=== PATIENT | female | born 1990 | race Caucasian/White ===

== ENCOUNTER 2017-06-28 17:41 | Emergency (ER) | payer BC, SELFPAY ==
[2017-06-28 17:59] VITALS: BP 139/95; PULSE 113; RESP 20; TEMP 36.8; O2SAT 99
[2017-06-28 18:01] VITALS: BMI 28.3
--- NOTE | 2017-06-28 18:03 | US_ITS ---
US OB transvaginal Ordering Physician: Jose Alberto Ventura MD Patient Age: 26 years: Female HISTORY: ITS.REASON: APPROX 8 WEEKS PREG W/PAIN AND SM AMOUNT OF BLEEDI home chest reported positive for . Spotting. Pressure pelvis. TECHNIQUE: Transvaginal pelvic ultrasound COMPARISON : 05/24/2017 FINDINGS No intrauterine gestation is evident. No gestational sac. There is a generous thickened endometrium which may reflect decidual reaction. It measures nearly 1 cm maximum AP thickness. Towards fundus.. The lack of intrauterine gestational sac with positive test is concerning for potential ectopic . Requires correlation with quantitative beta-hCG to better determine the status of this . Left ovary. There is a 1.7 x 1.3 cm cystic area posterior to the left ovary. No significant increased flow here, no ring of fire. The remainder the left ovary anterior to this is unremarkable and normal size measuring 2.2 cm x 2.6 cm x 1.8 cm. Right ovary 2.6 x 1.1 x 0.9 cm.. Elongated appearance with small follicles about its margin. The No free fluid at cul-de-sac IMPRESSION No intrauterine gestation or gestational sac evident. The would appear to be thickened endometrium measuring up to 1 cm may reflect decidual reaction. Empty gestational sac with positive test is significantly concerning for early ectopic . Requires correlation with serum beta hCG. In addition there is a 1.7 x 1.3 cm moderately thick walled cystic area posterior to the left ovary. No increased flow or internal structures here to further raise concern regarding ectopic. BROADCAST TRAFFIC COORDINATOR consult warranted
[2017-06-28 18:55] VITALS: PULSE 93; RESP 18; O2SAT 95; BMI 28.1
[2017-06-28 19:43] LABS: HCG,Quantitative 46 mIU/mL
[2017-06-28 19:59] VITALS: BP 122/81; PULSE 86; RESP 16; TEMP 37.1; O2SAT 97
--- NOTE | 2017-06-28 20:05 | PC.NURSE ---
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
--- NOTE | 2017-06-28 20:22 | HMH.EDUROGF ---
ED Disposition Clinical Impression: Qualifiers: Weeks of gestation: less than 8 weeks Qualified Code(s): Z3A.01 - Less than 8 weeks gestation of Disposition: Home, Self-Care Condition on Discharge: Good Instructions: Threatened - Critical Care Critical Care Time: No Attestation: On 06/28/17, the high probability of a clinically significant, sudden or life threatening deterioration of the following system(s) required my full and direct attention, intervention and personal management. The time I documented below is in addition to time spent performing reported procedures but includes the following listed in this critical care notation. Medical Decision Making Vital Signs: 06/28/17 17:59 06/28/17 18:55 06/28/17 19:59 Temperature 98.2 F 98.7 F Temperature Source Oral Oral Pulse Rate [Left Radial] 113 H 93 H 86 Respiratory Rate 20 18 16 Blood Pressure [Left Arm] 139/95 122/81 Blood Pressure Mean [Left Arm] 109 94 Blood Pressure Source [Left Arm] Automatic Cuff Automatic Cuff Blood Pressure Position [Left Arm] Sitting Sitting 02 Sat by Pulse Oximetry 99 95 97 Oxygen Delivery Method Room Air Room Air Room Air - Lab Data Lab results reviewed: Yes: I reviewed the patient's lab results. hcg- 46 Orders (Tests/Meds): ORDERS Category Date Time Status US OB transvaginal Stat Ultrasound 06/28/17 18:03 Taken - [place] Inquiry Pt receiving controlled substance: No Medical Decision Making Narrative: cystic structure left adnexa with no sac, discussed with Dr. Restrepo will give paper for OP hcg. Female Urogenital HPI - General Chief complaint: Vaginal Bleeding Stated complaint: Preg, Pelvic Pain, Dizzy Bleeding Mode of Arrival: Ambulatory Limitations: No Limitations Description of Symptoms (Recalled from ER Triage Doc. 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 PT SPOKE WITH AND SENT TO ER FOR SPOTTING, PELVIC PRESSURE, AND LIGHT HEADEDNESS. - History of Present Illness MD Complaint: vaginal bleeding (spotting, she is sexually active) : unsure - Related Data Allergies Allergy/AdvReac Type Severity Reaction Status Date / Time codeine [CODEINE] Allergy Severe S-SWELLS-OR Unverified 06/15/17 14:12 AL/THROAT lamotrigine [From LAMICTAL] Allergy Unknown Unverified 06/15/17 14:12 morphine [MORPHINE] Allergy Unknown Unverified 06/15/17 14:12 Penicillins [PENICILLINS] Allergy Unknown S-DIFF. Unverified 06/15/17 14:12 BREATHING [facility] History I have reviewed the patient's past medical history: Yes Medical History: Denies:: Cancer, Diabetes Mellitus Type 1, Diabetes Mellitus Type 2, MRSA Amputation: No Fractures: No - *Social History Smoking Status: Never smoker Alcohol Intake: never - Psychiatric History Expresses thoughts of harming self/others: None Suicide Plan Description: No Plan ROS Obtained: Yes All systems reviewed & no additional complaints except - Genitourinary Reports other - Allergic/Immunologic Comments: she has had spotting and positive test, very upset. I discussed with Dr Restrepo- order OP cervical collar Physical Exam - General General appearance: alert, in no apparent distress - Head Head exam: atraumatic, normocephalic, normal inspection - Eye Eye exam: Present: normal appearance, PERRL, EOMI - ENT ENT exam: Present: normal exam, normal oropharynx, mucous membranes moist, TM's normal bilaterally, normal external ear exam - Neck Neck exam: Present: normal inspection, full ROM, trachea midline - Chest Chest inspection: Present: normal inspection, symmetric chest wall rise. Absent: tenderness - Respiratory Respiratory exam: Present: normal lung sounds bilaterally. Absent: respiratory distress - Cardiovascular Cardiovascular exam: Present: regular rate, normal rhythm. Absent: JVD - Abdominal Exam Abdominal exam: Present: soft, no
--- NOTE | 2017-06-28 20:25 | ED_ITS ---
ED Disposition Clinical Impression: Qualifiers: Weeks of gestation: less than 8 weeks Qualified Code(s): Z3A.01 - Less than 8 weeks gestation of Disposition: Home, Self-Care Condition on Discharge: Good Instructions: Threatened - Critical Care Critical Care Time: No Attestation: On 06/28/17, the high probability of a clinically significant, sudden or life threatening deterioration of the following system(s) required my full and direct attention, intervention and personal management. The time I documented below is in addition to time spent performing reported procedures but includes the following listed in this critical care notation. Medical Decision Making Vital Signs: 06/28/17 17:59 06/28/17 18:55 06/28/17 19:59 Temperature 98.2 F 98.7 F Temperature Source Oral Oral Pulse Rate [Left Radial] 113 H 93 H 86 Respiratory Rate 20 18 16 Blood Pressure [Left Arm] 139/95 122/81 Blood Pressure Mean [Left Arm] 109 94 Blood Pressure Source [Left Arm] Automatic Cuff Automatic Cuff Blood Pressure Position [Left Arm] Sitting Sitting 02 Sat by Pulse Oximetry 99 95 97 Oxygen Delivery Method Room Air Room Air Room Air - Lab Data Lab results reviewed: Yes: I reviewed the patient's lab results. hcg- 46 Orders (Tests/Meds): ORDERS Category Date Time Status US OB transvaginal Stat Ultrasound 06/28/17 18:03 Taken - [place] Inquiry Pt receiving controlled substance: No Medical Decision Making Narrative: cystic structure left adnexa with no sac, discussed with Dr. Restrepo will give paper for OP hcg. Female Urogenital HPI - General Chief complaint: Vaginal Bleeding Stated complaint: Preg, Pelvic Pain, Dizzy Bleeding Mode of Arrival: Ambulatory Limitations: No Limitations Description of Symptoms (Recalled from ER Triage Doc. 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 PT SPOKE WITH AND SENT TO ER FOR SPOTTING, PELVIC PRESSURE, AND LIGHT HEADEDNESS. - History of Present Illness MD Complaint: vaginal bleeding (spotting, she is sexually active) : unsure - Related Data Allergies Allergy/AdvReac Type Severity Reaction Status Date / Time codeine [CODEINE] Allergy Severe S-SWELLS-OR Unverified 06/15/17 14:12 AL/THROAT lamotrigine [From LAMICTAL] Allergy Unknown Unverified 06/15/17 14:12 morphine [MORPHINE] Allergy Unknown Unverified 06/15/17 14:12 Penicillins [PENICILLINS] Allergy Unknown S-DIFF. Unverified 06/15/17 14:12 BREATHING [facility] History I have reviewed the patient's past medical history: Yes Medical History: Denies:: Cancer, Diabetes Mellitus Type 1, Diabetes Mellitus Type 2, MRSA Amputation: No Fractures: No - *Social History Smoking Status: Never smoker Alcohol Intake: never - Psychiatric History Expresses thoughts of harming self/others: None Suicide Plan Description: No Plan ROS Obtained: Yes All systems reviewed & no additional complaints except - Genitourinary Reports other - Allergic/Immunologic Comments: she has had spotting and positive test, very upset. I discussed with Dr Restrepo- order OP cervical collar Physical Exam - General General appearance: alert, in no apparent distress - Head Head exam: atra
[2017-06-28 20:47] VITALS: BP 122/79; PULSE 80; RESP 15; TEMP 36.6; O2SAT 96
== END 2017-06-28 20:49 | disposition home or self-care (01) ==
PROVIDERS: Emergency Provider Family Medicine; Family Provider Internal Medicine Adolescent Medicine
DX: O20.8 Other hemorrhage in early pregnancy (principal); Z3A.08 8 weeks gestation of pregnancy; Z88.6 Allergy status to analgesic agent
CPT/HCPCS: 76830; 84702; 99283

== ENCOUNTER 2017-06-30 15:21 | Emergency (ER) | payer BC, MEDICAID, SELFPAY ==
[2017-06-30 15:22] VITALS: BP 136/67; PULSE 112; RESP 24; TEMP 38.1; O2SAT 98; BMI 28.3
--- NOTE | 2017-06-30 16:07 | HMH.EDGENADL ---
ED Disposition Clinical Impression: Influenza A Qualifiers: Weeks of gestation: less than 8 weeks Qualified Code(s): Z3A.01 - Less than 8 weeks gestation of Disposition: Home, Self-Care Condition on Discharge: Good Instructions: DI for Influenza -- Adult Additional Instructions: Off work for 1 week until 07/07/17. Additional instructions for UPPER RESPIRATORY INFECTION: Follow-up with your physician if not improved by Wednesday. return immediately if you have an uncontrollable fever greater than 104 degrees, difficulty breathing or shortness of breath, persistent vomiting, or inability to swallow. Prescriptions: Promethazine HCl [Phenergan 25mg tab] 25 mg PO Q6HP PRN #10 tab PRN Reason: Nausea And Vomiting Promethazine HCl [Phenergan 25mg tab] 25 mg PO Q6HP PRN #10 tablet PRN Reason: Nausea And Vomiting Oseltamivir Phosphate [Tamiflu 75mg Capsule] 75 mg PO BID #10 capsule Oseltamivir Phosphate [Tamiflu 75mg Capsule] 75 mg PO BID #10 cap Referrals: Guille Morrell MD [Primary Care Provider] - Forms: Work/School Release - Critical Care Critical Care Time: No Attestation: On 06/30/17, the high probability of a clinically significant, sudden or life threatening deterioration of the following system(s) required my full and direct attention, intervention and personal management. The time I documented below is in addition to time spent performing reported procedures but includes the following listed in this critical care notation. Medical Decision Making Vital Signs: 06/30/17 15:22 Temperature 100.5 F H Temperature Source Oral Pulse Rate [Left Brachial] 112 H Respiratory Rate 24 Blood Pressure [Left Arm] 136/67 Blood Pressure Mean [Left Arm] 90 Blood Pressure Source [Left Arm] Automatic Cuff Blood Pressure Position [Left Arm] Sitting 02 Sat by Pulse Oximetry 98 Oxygen Delivery Method Room Air - Lab Data Lab Results 06/30/17 15:45: Influenza Type A Ag Positive A, Influenza Type B Ag Negative 06/30/17 16:28: WBC 9.4, RBC 4.37, Hgb 12.1 L, Hct 38.5, MCV 88.2, MCH 27.7, MCHC 31.4 L, RDW 17.6 H, Plt Count 246, MPV 8.5, Neut % (Auto) 86.3 H, Lymph % (Auto) 6.4 L, [place] % (Auto) 5.8, Eos % (Auto) 1.1, Baso % (Auto) 0.2, Neut # (Auto) 8.1 H, Lymph # (Auto) 0.6 L, [place] # (Auto) 0.6, Eos # (Auto) 0.1, Baso # (Auto) 0.0 06/30/17 16:35: Sodium 135 L, Potassium 3.9, Chloride 102, Carbon Dioxide 25, Anion Gap 11.9, BUN 13, Creatinine 0.87, Estimated Creat Clear 115, Estimated GFR > 60, Est GFR ( Amer) > 60, Glucose 113 H, HCG, Quant 90 H Result diagrams: 06/30/17 16:28 06/30/17 16:35 Orders (Tests/Meds): ED MEDICATIONS Generic Name Dose Route Start Last Admin Trade Name Freq PRN Reason Stop Dose Admin Sodium Chloride 1,000 mls @ 999 mls/hr 06/30/17 16:45 06/30/17 16:47 Sod Chloride 0.9% 1000ml Bag IV 06/30/17 17:45 999 mls/hr .Q1H1M ANTON Administration Sodium Chloride 10 ml 06/30/17 15:37 Saline Flush 10ml Syringe IV 07/30/17 15:36 NEEDED PRN Maintain IV Site Discontinued Medications Generic Name Dose Route Start Last Admin Trade Name Freq PRN Reason Stop Dose Admin Acetaminophen 500 mg 06/30/17 17:38 Tylenol 500mg Tablet PO 06/30/17 17:39 ONCE ONE Promethazine HCl 12.5 mg 06/30/17 17:35 Phenergan 25mg/Ml 1ml Vial IV 06/30/17 17:36 ONCE ONE Sodium Chloride 25 ml 06/30/17 17:35 Sod Chloride 0.9% 25ml Bag IV 06/30/17 17:36 ONCE ONE ORDERS Category Date Time Status Complete Blood Count Auto Diff Stat Lab 06/30/17 16:28 Results - ECG Data Tracing #1 EKG interpreted by Dillon Chakraborty MD: Rhythm: sinus tachycardia Rate: 121 [place]: normal Ectopy: none Conduction: normal ST Segment Changes: none T Wave Changes: none Q Waves: none No evidence of acute ischemia or injury Poor R-wave progression Baseline artifact present, but I consider the EKG adequate for accurat
[2017-06-30 16:49] LABS: Basophils % 0.2 % (0.1-2.0); Eosinophils # 0.1 K/mm3 (0.0-0.4); Eosinophils % 1.1 % (0.1-12.0); Hematocrit 38.5 % (37.0-47.0); Hemoglobin 12.1 g/dL (12.2-16.2); Lymphocytes # 0.6 K/mm3 (0.7-4.5); Lymphocytes % 6.4 K/mm3 (10-50); Mean Corpuscular HGB Conc 31.4 g/dL (31.8-35.4); Mean Corpuscular Hemoglobin 27.7 pg (27.0-31.2); Mean Corpuscular Volume 88.2 fl (81-99); Mean Platelet Volume 8.5 fl (7.4-10.4); Monocytes # 0.6 K/mm3 (0.1-1.0); Monocytes % 5.8 % (1.7-9.3); Neutrophils # 8.1 K/mm3 (1.8-7.8); Neutrophils % 86.3 % (37.0-80.0); Platelet Count 246 K/mm3 (142-424); Red Blood Count 4.37 M/mm3 (4.20-5.40); Red Cell Distribution Width 17.6 % (11.5-17.5); White Blood Count 9.4 K/mm3 (4.8-10.8)
[2017-06-30 16:53] LABS: MANUAL DIFFERENTIAL MANUAL DIFFERENTIAL (MANUAL DIFF)
[2017-06-30 17:23] LABS: Anion Gap 11.9 mEq/L (5-15); Blood Urea Nitrogen 13 mg/dL (7-18); Carbon Dioxide 25 mmol/L (21.0-32.0); Chloride 102 mmol/L (98-107); Creatinine Clearance Estimated 115 mg/ml (0-300); Creatinine,Serum 0.87 mg/dL (0.55-1.02); Estimated Glomerular Filt Rate > 60 ml/min (>60); GFR (African American) > 60 ML/MIN (>60); Glucose 113 mg/dL (74-106); Potassium 3.9 mmoL/L (3.5-5.1); Sodium 135 mmol/L (136-145)
[2017-06-30 17:24] LABS: HCG,Quantitative 90 mIU/mL
[2017-06-30 17:49] LABS: Lymphocytes % 5 % (10-50); Monocytes % 7 % (2-9); Neutrophils % 86 % (42-76); Platelet Estimate Normal; Total Cells Counted 100
[2017-06-30 17:50] LABS: RBC Morphology Normal
[2017-06-30 18:44] VITALS: BP 128/76; PULSE 78; RESP 20; TEMP 37.3; O2SAT 97
== END 2017-06-30 18:50 | disposition home or self-care (01) ==
PROVIDERS: Emergency Provider Emergency Medicine; Family Provider Internal Medicine Adolescent Medicine; PCP Internal Medicine Adolescent Medicine
DX: J10.1 Influenza due to other identified influenza virus with other respiratory manifestations (principal); Z3A.01 Less than 8 weeks gestation of pregnancy; Z88.0 Allergy status to penicillin; Z88.6 Allergy status to analgesic agent
CPT/HCPCS: 80048; 84702; 85007; 85025; 87275; 87276; 93005; 96375; 99282

== ENCOUNTER → 2017-07-05 14:22 | Outpatient (CLI) | payer BC, SELFPAY ==
[2017-07-05 15:51] LABS: HCG,Quantitative 551 mIU/mL
== END ==
PROVIDERS: PCP Family Medicine; Visit Provider Family Medicine
DX: Z34.90 Encounter for supervision of normal pregnancy, unspecified, unspecified trimester (principal)
CPT/HCPCS: 36415; 84702

== ENCOUNTER → 2017-07-08 15:56 | Outpatient (CLI) | payer BC, MEDICAID, SELFPAY ==
--- NOTE | 2017-07-08 16:08 | US_ITS ---
US OB transvaginal: INDICATION: Evaluate gestational age ITS.REASON: FOR DATES ORDERING PHYSICIAN: Kush Singh MD PATIENT AGE: 26 years TECHNIQUE: ultrasound endovaginal US OB transvaginal FINDINGS: The images submitted are fairly limited. 2 small cystic areas are present in the fundus of the uterus measuring approximately 4 x 3 and 4 x 2 mm. Is difficult to determine the exact location of these on the images submitted. No poles are apparent. Endometrial stripe is not well demonstrated. These areas may be out of the endometrium. There is a left ovarian cyst at 2 cm. No cul-de-sac. IMPRESSION: Limited exam. 2 small cystic areas in the region of the fundus of the uterus of indeterminate etiology. No poles or yolk sacs apparent. Short-term follow-up recommended as well as correlation with beta hCG. A live intrauterine gestation is not identified at this
== END ==
PROVIDERS: Family Provider Internal Medicine Adolescent Medicine; PCP Family Medicine; Visit Provider Nurse Practitioner Obstetrics & Gynecology
DX: O26.841 Uterine size-date discrepancy, first trimester (principal)
CPT/HCPCS: 76830

== ENCOUNTER 2017-07-15 15:16 | Observation (INO) | payer BC, MEDICAID, SELFPAY ==
[2017-07-15 15:18] VITALS: BP 133/78; PULSE 119; RESP 20; TEMP 37.3; O2SAT 98; BMI 29.2
[2017-07-15 16:01] LABS: Microscopic, Urine URINE MICROSCOPIC (MICROSCOPIC)
[2017-07-15 16:10] LABS: Appearance,Urine CLOUDY (Clear); Bilirubin,Urine Negative (Negative); Blood, Urine LARGE (Negative); Color,Urine YELLOW (Yellow); Glucose,Urine (UA) Negative (Negative); Ketones,Urine 40 (Negative); Leukocyte Esterase,Urine Negative (Negative); Nitrate,Urine Negative (Negative); Protein,Urine TRACE (Negative); Specific Gravity, Urine 1.025 (1.005-1.030); Urobilinogen,Urine 0.2 EU/dl (0.2)
[2017-07-15 16:12] LABS: Basophils % 0.3 % (0.1-2.0); Eosinophils # 0.1 K/mm3 (0.0-0.4); Eosinophils % 0.6 % (0.1-12.0); Hematocrit 39.5 % (37.0-47.0); Hemoglobin 12.9 g/dL (12.2-16.2); Lymphocytes % 23.1 K/mm3 (10-50); Mean Corpuscular HGB Conc 32.7 g/dL (31.8-35.4); Mean Corpuscular Hemoglobin 28.6 pg (27.0-31.2); Mean Corpuscular Volume 87.7 fl (81-99); Mean Platelet Volume 7.4 fl (7.4-10.4); Monocytes # 0.4 K/mm3 (0.1-1.0); Platelet Count 368 K/mm3 (142-424); Red Cell Distribution Width 17.4 % (11.5-17.5); White Blood Count 8.5 K/mm3 (4.8-10.8)
[2017-07-15 16:20] LABS: Alanine Aminotransferase 24 U/L (12-78); Albumin Level 4.4 gm/dL (3.4-5.0); Albumin/Globulin Ratio 1.1 (1.1-1.8); Alkaline Phosphatase 83 U/L (46-116); Amylase 98 U/L (25-125); Anion Gap 15.2 mEq/L (5-15); Aspartate Amino Transferase 17 U/L (15-37); Bilirubin,Total 0.3 mg/dL (0.2-1.0); Blood Urea Nitrogen 9 mg/dL (7-18); Calcium 9.1 mg/dL (8.5-10.1); Carbon Dioxide 22 mmol/L (21.0-32.0); Chloride 100 mmol/L (98-107); Creatinine Clearance Estimated 124 mL/min (0-300); Creatinine,Serum 0.83 mg/dL (0.55-1.02); Estimated Glomerular Filt Rate 82 ml/min (>60); GFR (African American) 100 ML/MIN (>60); Globulin 3.9 gm/dl (1.3-3.2); Glucose 98 mg/dL (74-106); Lipase 119 u/L (73-393); Potassium 3.2 mmoL/L (3.5-5.1); Sodium 134 mmol/L (136-145); Total Protein,Serum 8.3 gm/dL (6.4-8.2)
--- NOTE | 2017-07-15 16:30 | HMH.EDGENADL ---
ED Disposition Clinical Impression: Kidney stone Qualifiers: Weeks of gestation: 8 weeks Qualified Code(s): Z3A.08 - 8 weeks gestation of Hematuria Qualifiers: Hematuria type: unspecified type Qualified Code(s): R31.9 - Hematuria, unspecified Disposition: Admitted As Inpatient Condition on Discharge: Good Time of Disposition: 16:45 - Critical Care Critical Care Time: No Attestation: On 07/15/17, the high probability of a clinically significant, sudden or life threatening deterioration of the following system(s) required my full and direct attention, intervention and personal management. The time I documented below is in addition to time spent performing reported procedures but includes the following listed in this critical care notation. Medical Decision Making - Medical Records Medical records reviewed: Yes: I reviewed the patient's medical records. Vital Signs: 07/15/17 15:18 07/15/17 18:37 Temperature 99.2 F 98.6 F Temperature Source Oral Oral Pulse Rate 87 Pulse Rate [Right Radial] 119 H Respiratory Rate 20 14 Blood Pressure 114/74 Blood Pressure [Right Arm] 133/78 Blood Pressure Mean [Right Arm] 96 Blood Pressure Source Automatic Cuff Blood Pressure Source [Right Arm] Automatic Cuff Blood Pressure Position Sitting Blood Pressure Position [Right Arm] Supine 02 Sat by Pulse Oximetry 98 Oxygen Delivery Method Room Air Room Air - Lab Data Lab results reviewed: Yes: I reviewed the patient's lab results. Lab Results 07/15/17 15:55: Urine Color Yellow, Urine Appearance Cloudy, Urine pH 6.0, Ur Specific [place] 1.025, Urine Protein Trace, Urine Glucose (UA) Negative, Urine Ketones 40, Urine Blood Large, Urine Nitrate Negative, Urine Bilirubin Negative, Urine Urobilinogen 0.2, Ur Leukocyte Esterase Negative, Urine RBC Tntc, Urine WBC Occasional, Ur Squamous Epith Cells Occasional, Urine Bacteria Trace 07/15/17 15:55: WBC 8.5, RBC 4.50, Hgb 12.9, Hct 39.5, MCV 87.7, MCH 28.6, MCHC 32.7, RDW 17.4, Plt Count 368, MPV 7.4, Neut % (Auto) 71.0, Lymph % (Auto) 23.1, [place] % (Auto) 5.0, Eos % (Auto) 0.6, Baso % (Auto) 0.3, Neut # (Auto) 6.0, Lymph # (Auto) 2.0, [place] # (Auto) 0.4, Eos # (Auto) 0.1, Baso # (Auto) 0.0 07/15/17 15:55: Sodium 134 L, Potassium 3.2 L, Chloride 100, Carbon Dioxide 22, Anion Gap 15.2 H, BUN 9, Creatinine 0.83, Estimated Creat Clear 124, Estimated GFR 82, Est GFR ( Amer) 100, Glucose 98, Calcium 9.1, Total Bilirubin 0.3, AST 17, ALT 24, Alkaline Phosphatase 83, Total Protein 8.3 H, Albumin 4.4, Globulin 3.9 H, Albumin/Globulin Ratio 1.1, Amylase 98, Lipase 119 Result diagrams: 07/15/17 15:55 07/15/17 15:55 Orders (Tests/Meds): ED MEDICATIONS Discontinued Medications Generic Name Dose Route Start Last Admin Trade Name Freq PRN Reason Stop Dose Admin Citalopram Hydrobromide 40 mg 07/16/17 12:00 07/17/17 09:27 Celexa 40mg Tablet PO 08/15/17 11:59 40 mg DAILY ANTON Administration Clonazepam 1 mg 07/16/17 13:00 07/17/17 09:27 Klonopin 1mg Tablet PO 08/15/17 12:59 1 mg TID ANTON Administration Diphenhydramine HCl 25 mg 07/15/17 19:37 07/16/17 12:29 Benadryl 25mg Capsule PO 08/14/17 19:36 25 mg Q8HP PRN Administration Itching Doxylamine Succinate/Pyridoxine 1 tab 07/16/17 09:00 07/17/17 09:27 Diclegis 10mg-10mg Tablet PO 08/15/17 08:59 1 tab BID ANTON Administration Hydromorphone HCl 1 mg 07/15/17 15:33 07/15/17 16:20 Dilaudid 2mg/Ml Syringe IV 07/15/17 15:34 1 mg ONCE ONE Administration Hydromorphone HCl 1 mg 07/15/17 17:23 07/15/17 17:31 Dilaudid 2mg/Ml Syringe IV 07/15/17 17:24 1 mg ONCE ONE Administration Hydromorphone HCl 0.5 mg 07/15/17 17:56 Dilaudid 2mg/Ml Syringe IV 08/14/17 17:59 Q4H PRN Moderate Pain Hydromorphone HCl 2 mg 07/15/17 18:31 Dilaudid 2mg Tablet PO 08/14/17 18:30 Q4HP PRN Moderate to Severe Pain Hydromorphon
--- NOTE | 2017-07-15 16:31 | US_ITS ---
US retroperitoneal comp HISTORY: Left flank pain ITS.REASON: right kidney stone ORDERING PHYSICIAN: Afshin Flores MD PATIENT AGE: 26 years COMPARISON: None FINDINGS: RIGHT KIDNEY:Unremarkable. Normal size and echogenicity. No hydronephrosis LEFT KIDNEY:Unremarkable. No hydronephrosis. Normal size and echogenicity. OTHER FINDINGS: No other pertinent findings IMPRESSION: Normal renal ultrasound
[2017-07-15 16:54] LABS: Bacteria,Urine Trace /lpf; RBC,Urine TNTC #/hpf (0-3); Squamous Epithelial Cell,Urine Occasional #/hpf (0-5); WBC,Urine Occasional #/hpf (0-3)
[2017-07-15 18:37] VITALS: BP 114/74; PULSE 87; RESP 14; TEMP 37; O2SAT 98
[2017-07-15 18:49] VITALS: BP 155/81; PULSE 111; RESP 20; TEMP 36.4; O2SAT 100; BMI 29.2
--- NOTE | 2017-07-16 00:18 | PC.NURSE ---
Assumed care of pt at this time. Report received from ADAM Nguyen
--- NOTE | 2017-07-16 07:35 | PC.NURSE ---
REPORT TO ALLENRN
--- NOTE | 2017-07-16 08:27 | P.PN_ITS ---
Internal Medicine - PN: Subj *Date: 07/16/17 *Time: 08:22 Interval history: She continues to complain of nausea and vomiting. She was throwing up on a towel on the floor leaning over her bed when I arrived in the room. She is very upset this morning. She apparently had the steel pan form placing supervisor involved with her care because she said the night nurse was not treating her well. This is the third time she has been in our hospital with pain and she has also had supervisors involved with her care each time due to her perception that the nurses were treating her well. She has been quite terse and hateful with her nurses and she says that they are all treating her badly. Her ultrasound shows a viable intrauterine gestation. She had an ultrasound of her kidneys that was normal with no evidence of hydronephrosis or blockage. She has blood in her urine. She has a history of kidney stones. She has been receiving Phenergan for her nausea and hydromorphone IV for her kidney pain. She says the pain started yesterday morning around 10:00. Exam Vital signs and Labs for Last 24 Hours: Temp Pulse Resp BP Pulse Ox 97.6 F 111 H 20 155/81 100 07/15/17 18:49 07/15/17 18:49 07/15/17 18:49 07/15/17 18:49 07/15/17 18:49 I & O for Last 24 hours: Intake & Output 07/13/17 07/14/17 07/15/17 07/16/17 11:59 11:59 11:59 11:59 Output Total 300 / 300 Balance -300 / -300 Weight 170 lb - Constitutional mild distress Assessment and Plan - Assessment and plan all Dx Assessment and Plan for all problems:: At this point in time she is upset because I told her that over the last 3 visits she has upset the nurses and has had involvement of supervisors each time she has been in hospital. I told her that maybe her perception was wrong about how the nurses were treating her. I told her that she could not treat the nurses badly either. She says that she would like to go back to [facility] at . We will see how she does for the rest of the day today. If she is feeling better later we will send her home. We will start Diclegis. Told her that I will send her home with pain medicine and Phenergan.
--- NOTE | 2017-07-17 10:44 | HMH.DCSUM ---
General - General Admission date: 07/15/17 Discharge date: 07/17/17 HPI HPI: She is a 26-year-old 2 para 1 who was 8 weeks gestational age. She has had a long history of both kidney stones and psychiatric problems. Has had a previous delivery in [place]. She came in to the emergency department with severe intractable renal colic on the left side. She said it started about 10:00 on the morning of July 15, 2017. She has had previous episodes of this as well. As a result of that she was admitted for pain control. She also complained of nausea and vomiting and she received medication for this as well. Objective Vital signs: Temp Pulse Resp BP Pulse Ox 97.6 F 111 H 20 155/81 100 07/15/17 18:49 07/15/17 18:49 07/15/17 18:49 07/15/17 18:49 07/15/17 18:49 no acute distress Hospital Course Hospital Course: While hospitalized she received IV Phenergan as well as IV Dilaudid for pain. She had an ultrasound that was essentially normal. There was no evidence of hydronephrosis or stones. She says that she passed a small stone and this was sent to pathology. It was approximately a millimeter in size and there was a small brown flake as well. Her urinalysis did show hematuria. At this point in time we could not find any physical reason for her pain except for the hematuria. While hospitalized she was quite anxious and upset at the nursing staff. She said that 1 of our nurses was not addressing her needs appropriately or quickly enough. As a result of that she fired the nurse in the middle of the night and had the nurse supervisor plastics involved. This is the third time she has been admitted to our hospital and each time she has fired nurses from her care and had management staff involved. Meds Home Medications Medication Instructions Recorded Confirmed Type Escitalopram Oxalate 20 mg PO DAILY 07/16/17 07/16/17 History Gabapentin [Neurontin 600mg 300 mg PO 10,14,18 07/16/17 07/16/17 History tablet] Gabapentin [Neurontin 600mg 600 mg PO HS 07/16/17 07/16/17 History tablet] Zolpidem Tartrate [Ambien 10mg 10 mg PO HS 07/16/17 07/16/17 History tablet] buPROPion HCl [Bupropion Xl] 300 mg PO DAILY 07/16/17 07/16/17 History clonazePAM [Klonopin 1mg tablet] 1 mg PO TID 07/16/17 07/16/17 History Allergies Allergy/AdvReac Type Severity Reaction Status Date / Time codeine [CODEINE] Allergy Severe S-SWELLS-OR Verified 06/30/17 16:44 AL/THROAT lamotrigine [From LAMICTAL] Allergy Unknown Verified 06/30/17 16:44 morphine [MORPHINE] Allergy Unknown Verified 06/30/17 16:44 Penicillins [PENICILLINS] Allergy Unknown S-DIFF. Verified 06/30/17 16:44 BREATHING Discharge Plan - Patient Discharge Instructions ACTIVITY: Continue current activity (She is discharged home to follow-up with a physician in [place]. She will follow-up with her urologist. She was given a prescription for Phenergan and Percocet.) DIET: continue same diet - Follow up Plan Disposition: Home, Self-Group Home Medications: Home Medications Medication Instructions Recorded Confirmed Type Escitalopram Oxalate 20 mg PO DAILY 07/16/17 07/16/17 History Gabapentin [Neurontin 600mg 300 mg PO 10,14,18 07/16/17 07/16/17 History tablet] Gabapentin [Neurontin 600mg 600 mg PO HS 07/16/17 07/16/17 History tablet] Zolpidem Tartrate [Ambien 10mg 10 mg PO HS 07/16/17 07/16/17 History tablet] buPROPion HCl [Bupropion Xl] 300 mg PO DAILY 07/16/17 07/16/17 History clonazePAM [Klonopin 1mg tablet] 1 mg PO TID 07/16/17 07/16/17 History Prescriptions/Medication Reconciliation: Continue Escitalopram Oxalate 20 mg PO DAILY Promethazine HCl [Phenergan 12.5mg tablet] 6.25 mg PO Q6H PRN 14 Days #14 tab PRN Reason: nausea and vomiting Discontinued buPROPion HCl [Bupropion Xl] 300 mg PO DAILY Gabapentin [Neurontin 600mg tablet] 600 mg PO HS Zolpidem Tartrate [Ambi
--- NOTE | 2017-07-17 10:50 | P.DS_ITS ---
General - General Admission date: 07/15/17 Discharge date: 07/17/17 HPI HPI: She is a 26-year-old 2 para 1 who was 8 weeks gestational age. She has had a long history of both kidney stones and psychiatric problems. Has had a previous delivery in [place]. She came in to the emergency department with severe intractable renal colic on the left side. She said it started about 10:00 on the morning of July 15, 2017. She has had previous episodes of this as well. As a result of that she was admitted for pain control. She also complained of nausea and vomiting and she received medication for this as well. Objective Vital signs: Temp Pulse Resp BP Pulse Ox 97.6 F 111 H 20 155/81 100 07/15/17 18:49 07/15/17 18:49 07/15/17 18:49 07/15/17 18:49 07/15/17 18:49 no acute distress Hospital Course Hospital Course: While hospitalized she received IV Phenergan as well as IV Dilaudid for pain. She had an ultrasound that was essentially normal. There was no evidence of hydronephrosis or stones. She says that she passed a small stone and this was sent to pathology. It was approximately a millimeter in size and there was a small brown flake as well. Her urinalysis did show hematuria. At this point in time we could not find any physical reason for her pain except for the hematuria. While hospitalized she was quite anxious and upset at the nursing staff. She said that 1 of our nurses was not addressing her needs appropriately or quickly enough. As a result of that she fired the nurse in the middle of the night and had the nurse supervisor network control operators involved. This is the third time she has been admitted to our hospital and each time she has fired nurses from her care and had management staff involved. Meds Home Medications Medication Instructions Recorded Confirmed Type Escitalopram Oxalate 20 mg PO DAILY 07/16/17 07/16/17 History Gabapentin [Neurontin 600mg 300 mg PO 10,14,18 07/16/17 07/16/17 History tablet] Gabapentin [Neurontin 600mg 600 mg PO HS 07/16/17 07/16/17 History tablet] Zolpidem Tartrate [Ambien 10mg 10 mg PO HS 07/16/17 07/16/17 History tablet] buPROPion HCl [Bupropion Xl] 300 mg PO DAILY 07/16/17 07/16/17 History clonazePAM [Klonopin 1mg tablet] 1 mg PO TID 07/16/17 07/16/17 History Allergies Allergy/AdvReac Type Severity Reaction Status Date / Time codeine [CODEINE] Allergy Severe S-SWELLS-OR Verified 06/30/17 16:44 AL/THROAT lamotrigine [From LAMICTAL] Allergy Unknown Verified 06/30/17 16:44 morphine [MORPHINE] Allergy Unknown Verified 06/30/17 16:44 Penicillins [PENICILLINS] Allergy Unknown S-DIFF. Verified 06/30/17 16:44 BREATHING Discharge Plan - Patient Discharge Instructions ACTIVITY: Continue current activity (She is discharged home to follow-up with a physician in [place]. She will follow-up with her urologist. She was given a prescription for Phenergan and Percocet.) DIET: continue same diet - Follow up Plan Disposition: Home, Self-Halfway Medications: Home Medications Medication Instructions Recorded Confirmed Type Escitalopram Oxalate 20 mg PO DAILY 07/16/17 07/16/17 History Gabapentin [Neurontin 600mg 300 mg PO 10,14,18 07/16/17 07/16/17 History tablet] Gabapentin [Neurontin 600mg 600 mg PO HS 07/16/17 07/16/17 History tablet]
== END 2017-07-17 14:20 | disposition home or self-care (01) ==
LOC: ER 16:30 → OB 18:06
PROVIDERS: Admitting Provider Obstetrics & Gynecology; Emergency Provider Emergency Medicine; Family Provider Internal Medicine Adolescent Medicine; PCP Internal Medicine Adolescent Medicine; Visit Provider Nurse Practitioner Obstetrics & Gynecology
DX: N23 Unspecified renal colic (principal); O26.891 Other specified pregnancy related conditions, first trimester
CPT/HCPCS: 76770; 80053; 81001; 82150; 83690; 85025; 96365; 96366; 96375; 99283; G0378

== ENCOUNTER → 2017-07-21 15:31 | Outpatient (CLI) | payer BC, SELFPAY ==
--- NOTE | 2017-07-21 15:09 | US_ITS ---
US OB transvaginal HISTORY: Evaluate gestational age ITS.REASON: Check Dates ORDERING PHYSICIAN: Kush Singh MD PATIENT AGE: 26 years COMPARISON: None FINDINGS: An intrauterine gestational sac is present with a pole with a crown-rump length of 0.64 cmcm correlating to gestational age of 6 weeks and 4 days with an estimated due date by ultrasound of 03/12/2018.. heart tones are present with an FHR of 120 bpm's. Yolk sac is noted. . Adnexa: 17 x 8 mm left ovarian cyst. IMPRESSION: Live intrauterine gestation at 6 weeks 4 days by ultrasound with estimated due date by ultrasound of 03/12/2018
== END ==
PROVIDERS: Family Provider Internal Medicine Adolescent Medicine; PCP Internal Medicine Adolescent Medicine; Visit Provider Nurse Practitioner Obstetrics & Gynecology
DX: O26.841 Uterine size-date discrepancy, first trimester (principal)
CPT/HCPCS: 76830

== ENCOUNTER 2017-08-03 09:56 | Emergency (ER) | payer OTHER, BC, SELFPAY ==
[2017-08-03 09:58] VITALS: BP 167/79; PULSE 115; RESP 24; TEMP 37.3; O2SAT 98; BMI 30.2
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
[2017-08-03 10:31] LABS: Microscopic, Urine URINE MICROSCOPIC (MICROSCOPIC)
[2017-08-03 10:34] LABS: Appearance,Urine CLOUDY (Clear); Bilirubin,Urine Negative (Negative); Blood, Urine 3+ (Negative); Glucose,Urine (UA) Negative (Negative); Ketones,Urine Negative (Negative); Leukocyte Esterase,Urine Negative (Negative); Nitrate,Urine Negative (Negative); Protein,Urine 1+ (Negative); Specific Gravity, Urine 1.025 (1.005-1.030); Urobilinogen,Urine 0.2 EU/dl (0.2)
[2017-08-03 10:37] LABS: Color,Urine Amber (Yellow)
[2017-08-03 10:56] LABS: Bacteria,Urine Trace /lpf; RBC,Urine TNTC #/hpf (0-3); Squamous Epithelial Cell,Urine Occasional #/hpf (0-5)
[2017-08-03 13:10] LABS: Basophils % 0.4 % (0.1-2.0); Eosinophils # 0.2 K/mm3 (0.0-0.4); Eosinophils % 1.7 % (0.1-12.0); Hematocrit 38.9 % (37.0-47.0); Hemoglobin 12.4 g/dL (12.2-16.2); Lymphocytes # 2.1 K/mm3 (0.7-4.5); Lymphocytes % 24.7 K/mm3 (10-50); Mean Corpuscular HGB Conc 31.8 g/dL (31.8-35.4); Mean Corpuscular Hemoglobin 28.3 pg (27.0-31.2); Mean Platelet Volume 7.7 fl (7.4-10.4); Monocytes # 0.4 K/mm3 (0.1-1.0); Monocytes % 4.5 % (1.7-9.3); Neutrophils # 5.9 K/mm3 (1.8-7.8); Neutrophils % 68.7 % (37.0-80.0); Platelet Count 282 K/mm3 (142-424); Red Blood Count 4.37 M/mm3 (4.20-5.40); Red Cell Distribution Width 16.7 % (11.5-17.5); White Blood Count 8.6 K/mm3 (4.8-10.8)
[2017-08-03 13:21] LABS: Alanine Aminotransferase 23 U/L (12-78); Albumin Level 3.8 gm/dL (3.4-5.0); Alkaline Phosphatase 61 U/L (46-116); Bilirubin,Total 0.1 mg/dL (0.2-1.0); Blood Urea Nitrogen 9 mg/dL (7-18); Calcium 8.8 mg/dL (8.5-10.1); Creatinine Clearance Estimated 156 mL/min (0-300); Creatinine,Serum 0.64 mg/dL (0.55-1.02); Estimated Glomerular Filt Rate 111 ml/min (>60); GFR (African American) 135 ML/MIN (>60); Globulin 3.8 gm/dl (1.3-3.2); Glucose 86 mg/dL (74-106); Lipase 146 u/L (73-393); Total Protein,Serum 7.6 gm/dL (6.4-8.2)
[2017-08-03 13:29] LABS: Amylase 75 U/L (25-125)
[2017-08-03 13:31] LABS: Anion Gap 18.9 mEq/L (5-15); Carbon Dioxide 22 mmol/L (21.0-32.0); Chloride 108 mmol/L (98-107); Potassium 3.9 mmoL/L (3.5-5.1); Sodium 145 mmol/L (136-145)
[2017-08-03 13:36] LABS: Aspartate Amino Transferase 13 U/L (15-37)
--- NOTE | 2017-08-03 13:56 | HMH.EDABDPAI ---
ED Disposition Clinical Impression: Renal colic on left side Hematuria Qualifiers: Hematuria type: unspecified type Qualified Code(s): R31.9 - Hematuria, unspecified Abdominal wall contusion Qualifiers: Encounter type: initial encounter Qualified Code(s): S30.1XXA - Contusion of abdominal wall, initial encounter Disposition: Xfer Short-Term Hosp Condition on Discharge: Fair Instructions: DI for Acute Abdomen Referrals: Guille Morrell MD [Primary Care Provider] - Time of Disposition: 14:14 - Critical Care Critical Care Time: No Attestation: On 08/03/17, the high probability of a clinically significant, sudden or life threatening deterioration of the following system(s) required my full and direct attention, intervention and personal management. The time I documented below is in addition to time spent performing reported procedures but includes the following listed in this critical care notation. Medical Decision Making - Medical Records Medical records reviewed: Yes: I reviewed the patient's medical records. Vital Signs: 08/03/17 09:58 08/03/17 17:55 Temperature 99.1 F 98.0 F Temperature Source Oral Oral Pulse Rate 90 Pulse Rate [Right Radial] 115 H Respiratory Rate 24 20 Blood Pressure 120/88 Blood Pressure [Right Arm] 167/79 Blood Pressure Mean [Right Arm] 108 Blood Pressure Source Automatic Cuff Blood Pressure Source [Right Arm] Automatic Cuff Blood Pressure Position Sitting Blood Pressure Position [Right Arm] Supine 02 Sat by Pulse Oximetry 98 Oxygen Delivery Method Room Air Room Air - Lab Data Lab results reviewed: Yes: I reviewed the patient's lab results. Lab Results 08/03/17 10:25: Urine Color [place], Urine Appearance Cloudy, Urine pH 6.0, Ur Specific [place] 1.025, Urine Protein 1+, Urine Glucose (UA) Negative, Urine Ketones Negative, Urine Blood 3+, Urine Nitrate Negative, Urine Bilirubin Negative, Urine Urobilinogen 0.2, Ur Leukocyte Esterase Negative, Urine RBC Tntc, Urine WBC 3-5, Ur Squamous Epith Cells Occasional, Urine Bacteria Trace 08/03/17 12:33: Amylase 75, HCG, Quant [id number] H 08/03/17 12:33: Sodium 145, Potassium 3.9, Chloride 108 H, Carbon Dioxide 22, Anion Gap 18.9 H, BUN 9, Creatinine 0.64, Estimated Creat Clear 156, Estimated GFR 111, Est GFR ( Amer) 135, Glucose 86, Calcium 8.8, Total Bilirubin 0.1 L, AST 13 L, ALT 23, Alkaline Phosphatase 61, Total Protein 7.6, Albumin 3.8, Globulin 3.8 H, Albumin/Globulin Ratio 1.0 L, Lipase 146 08/03/17 13:05: WBC 8.6, RBC 4.37, Hgb 12.4, Hct 38.9, MCV 89.0, MCH 28.3, MCHC 31.8, RDW 16.7, Plt Count 282, MPV 7.7, Neut % (Auto) 68.7, Lymph % (Auto) 24.7, Antelope % (Auto) 4.5, Eos % (Auto) 1.7, Baso % (Auto) 0.4, Neut # (Auto) 5.9, Lymph # (Auto) 2.1, Antelope # (Auto) 0.4, Eos # (Auto) 0.2, Baso # (Auto) 0.0 Result diagrams: 08/03/17 13:05 08/03/17 12:33 Orders (Tests/Meds): ED MEDICATIONS Discontinued Medications Generic Name Dose Route Start Last Admin Trade Name Freq PRN Reason Stop Dose Admin Hydromorphone HCl 0.25 mg 08/03/17 10:09 08/03/17 11:06 Dilaudid 2mg/Ml Syringe IV 08/03/17 10:10 Not Given ONCE ONE Hydromorphone HCl 0.5 mg 08/03/17 12:03 08/03/17 11:00 Dilaudid 2mg/Ml Syringe IM 08/03/17 12:04 0.5 mg ONCE ONE Administration Hydromorphone HCl 1 mg 08/03/17 12:11 08/03/17 12:15 Dilaudid 4mg/Ml Syringe IV 08/03/17 12:12 1 mg ONCE ONE Administration Hydromorphone HCl 1 mg 08/03/17 13:10 08/03/17 14:25 Dilaudid 2mg/Ml Syringe IV 08/03/17 13:11 1 mg ONCE ONE Administration Hydromorphone HCl 1 mg 08/03/17 17:14 08/03/17 17:17 Dilaudid 2mg/Ml Syringe IV 08/03/17 17:15 1 mg ONCE ONE Administration Sodium Chloride 1,000 mls @ 999 mls/hr 08/03/17 11:30 08/03/17 11:52 Sod Chloride 0.9% 1000ml Bag IV 08/03/17 12:30 999 mls/hr .Q1H1M ANTON Administration Sodium Chloride 1,000 mls @ 999 mls/hr 08/03/17 13:15 08/03/17 14:28 Sod Chloride 0.9
--- NOTE | 2017-08-03 14:53 | PC.NURSE ---
Report given to payton Sparks RN at [facility].
[2017-08-03 17:55] VITALS: BP 120/88; PULSE 90; RESP 20; TEMP 36.7; O2SAT 100
== END 2017-08-03 17:57 | disposition short-term general hospital (02) ==
PROVIDERS: Emergency Provider Emergency Medicine; Family Provider Internal Medicine Adolescent Medicine; PCP Internal Medicine Adolescent Medicine
DX: S30.1XXA Contusion of abdominal wall, initial encounter (principal); W50.1XXA Accidental kick by another person, initial encounter; Y92.211 Elementary school as the place of occurrence of the external cause; Y99.0 Civilian activity done for income or pay; Z34.90 Encounter for supervision of normal pregnancy, unspecified, unspecified trimester; R31.9 Hematuria, unspecified; Z88.0 Allergy status to penicillin; Z88.6 Allergy status to analgesic agent; Z79.899 Other long term (current) drug therapy
CPT/HCPCS: 36415; 76830; 80053; 81001; 82150; 83690; 84702; 85025; 96365; 96375; 96376; 99282

== ENCOUNTER 2017-08-16 08:58 | Emergency (ER) | payer BC, SELFPAY ==
[2017-08-16 09:15] VITALS: BP 127/70; PULSE 120; RESP 18; TEMP 37.4; O2SAT 98; BMI 28.3
--- NOTE | 2017-08-16 09:21 | US_ITS ---
US retroperitoneal comp Ordering Physician: Socorro Quispe MD Patient Age: 26 years: Female HISTORY: ITS.REASON: rule out hydronephrosis TECHNIQUE: Ultrasound kidneys bilateral COMPARISON :Previous ultrasound 07/15/2017 kidneys FINDINGS Right kidney demonstrates mild hydronephrosis which is become evident and a change since 07/15/2017 study. Right renal pelvis is now mildly prominent and was barely appreciable on previous recent June study.. There is now mild prominence of the infundibular structures and towards calyces. Also partially imaged proximal right ureter appears slightly more more generous and slightly more pronounced. Findings suggest mild early hydronephrosis possibly hydronephrosis of but if there is hematuria conceivably could reflect a small stone no discrete calculi were seen on the previous right kidney ultrasound. Left kidney, column of Wu a noted Today's study there is a tiny nonspecific 2 mm echogenic focus at the midportion left kidney distal superior to the column of Wu.. Doubt of significance. This echogenic focus may merely be an echogenic tissue interface interface. . No shadowing or features to further suggest or define stone, but it this is noted . good color Doppler flow to both kidneys. No perinephric fluid collections. Cortex well-maintained bilaterally the kidneys are normal in size. Right kidney 10.5 cm in length x4.3 x 5.4 cm. Left kidney 11.5 cm in length as 5.2 x 1.8 cm. ... IMPRESSION: 1. Since July 15, 2017 the patient developed mild hydronephrosis of the right kidney.. Pelvicalyceal structures have become more pronounced and there is mild fullness of the proximal most visualized right ureter 2. No discrete echogenic foci at the right kidney. No discrete stone identified at right kidney 3. Left kidney. Appears normal. No hydronephrosis. Tiny nonspecific echogenic focus-doubtful for very tiny stone
--- NOTE | 2017-08-16 09:24 | HMH.EDGENADL ---
ED Disposition Clinical Impression: Qualifiers: Weeks of gestation: 11 weeks Qualified Code(s): Z3A.11 - 11 weeks gestation of Disposition: Xfer Critical Access Hosp Condition on Discharge: Fair Instructions: DI for Acute Pain -- Adult Additional Instructions: Being made a directe admit to [facility] by Dr. Ever Mohamud Referrals: Guille Morrell MD [Primary Care Provider] - Time of Disposition: 11:33 - Critical Care Critical Care Time: No Attestation: On , the high probability of a clinically significant, sudden or life threatening deterioration of the following system(s) required my full and direct attention, intervention and personal management. The time I documented below is in addition to time spent performing reported procedures but includes the following listed in this critical care notation. Medical Decision Making - Medical Records Medical records reviewed: Yes: I reviewed the patient's medical records. Vital Signs: 08/16/17 09:15 Temperature 99.4 F Temperature Source Oral Pulse Rate [Right Brachial] 120 H Respiratory Rate 18 Blood Pressure [Right Arm] 127/70 Blood Pressure Mean [Right Arm] 89 Blood Pressure Source [Right Arm] Automatic Cuff Blood Pressure Position [Right Arm] Sitting 02 Sat by Pulse Oximetry 98 Oxygen Delivery Method Room Air - Lab Data Lab results reviewed: Yes: I reviewed the patient's lab results. Lab Results 08/16/17 09:35: Urine Color Red, Urine Appearance Cloudy, Urine pH 6.0, Ur Specific [place] <= 1.005, Urine Protein Trace, Urine Glucose (UA) Negative, Urine Ketones Negative, Urine Blood 3+, Urine Nitrate Negative, Urine Bilirubin Negative, Urine Urobilinogen 0.2, Ur Leukocyte Esterase Negative, Urine RBC Tntc, Urine WBC 3-5, Ur Squamous Epith Cells 3-5 Orders (Tests/Meds): ED MEDICATIONS Discontinued Medications Generic Name Dose Route Start Last Admin Trade Name Freq PRN Reason Stop Dose Admin Sodium Chloride 1,000 mls @ 999 mls/hr 08/16/17 09:30 08/16/17 11:20 Sod Chlor 0.9% 1000ml Bag IV 08/16/17 10:30 999 mls/hr .Q1H1M ANTON Administration ORDERS Category Date Time Status US retroperitoneal comp Stat Exams 08/16/17 09:21 Taken Beta HCG, Quant [HCG,Quantitative] Stat Lab 02/19/18 11:20 Received Complete Blood Count Auto Diff Stat Lab 08/16/17 11:20 Received Comprehensive Metabolic Panel Stat Lab 08/16/17 11:20 Received - US Data US Images: Abdomen ED US Reviewed: Yes: I have reviewed the patient's US results, I discussed the US results w/the radiologist, I have viewed radiologist's interpretation Findings Narrative: dilated ureter on right but no stone seen - Ganga Inquiry Pt receiving controlled substance: Yes Ganga was queried for this patient: No Reason not queried -: Emergent pt cond-no time Risks and benefits of using a controlled substance: were discussed with pt by me General Adult HPI - General Chief complaint: PAIN Stated complaint: right side pain,11 weeks Time Seen by Provider: 08/16/17 09:17 Mode of Arrival: Family Vehicle Limitations: No Limitations Description of Symptoms (Recalled from ER Triage Doc. by RN): right side abd pain, pt states feels like its a kidney stone - History of Present Illness HPI narrative: Pt reports she is [address] Ever Mohamud in [place]. She also has a history of kidney stones and feels she has another with severe right sided abdominal pain radiates to right groin. 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 she does not smoke and she is allergic to Codiene, Lamictal, Morphine and PCN Onset (ago): hour(s) Location: abdomen Radiation: back, abdomen Severity: severe Severity scale (1-10): 10 Quality: sharp Consistency: constant Relieving factors: none Exacerbating factors: none, movement - Related Data Home Medications Medication Instructions Recorded Confirmed Escitalopram Oxalate
--- NOTE | 2017-08-16 09:27 | ED_ITS ---
ED Disposition Clinical Impression: Qualifiers: Weeks of gestation: 11 weeks Qualified Code(s): Z3A.11 - 11 weeks gestation of Disposition: Xfer Critical Access Hosp Condition on Discharge: Fair Instructions: DI for Acute Pain -- Adult Additional Instructions: Being [facility] a [facility] by Dr. Ever Mohamud Referrals: Guille Morrell MD [Primary Care Provider] - Time of Disposition: 11:33 - Critical Care Critical Care Time: No Attestation: On , the high probability of a clinically significant, sudden or life threatening deterioration of the following system(s) required my full and direct attention, intervention and personal management. The time I documented below is in addition to time spent performing reported procedures but includes the following listed in this critical care notation. Medical Decision Making - Medical Records Medical records reviewed: Yes: I reviewed the patient's medical records. Vital Signs: 08/16/17 09:15 Temperature 99.4 F Temperature Source Oral Pulse Rate [Right Brachial] 120 H Respiratory Rate 18 Blood Pressure [Right Arm] 127/70 Blood Pressure Mean [Right Arm] 89 Blood Pressure Source [Right Arm] Automatic Cuff Blood Pressure Position [Right Arm] Sitting 02 Sat by Pulse Oximetry 98 Oxygen Delivery Method Room Air - Lab Data Lab results reviewed: Yes: I reviewed the patient's lab results. Lab Results 08/16/17 09:35: Urine Color Red, Urine Appearance Cloudy, Urine pH 6.0, Ur Specific [place] <= 1.005, Urine Protein Trace, Urine Glucose (UA) Negative, Urine Ketones Negative, Urine Blood 3+, Urine Nitrate Negative, Urine Bilirubin Negative, Urine Urobilinogen 0.2, Ur Leukocyte Esterase Negative, Urine RBC Tntc , Urine WBC 3-5, Ur Squamous Epith Cells 3-5 Orders (Tests/Meds): ED MEDICATIONS Discontinued Medications Generic Name Dose Route Start Last Admin Trade Name Freq PRN Reason Stop Dose Admin Sodium Chloride 1,000 mls @ 999 mls/hr 08/16/17 09:30 08/16/17 11:20 Sod Chlor 0.9% 1000ml Bag IV 08/16/17 10:30 999 mls/hr .Q1H1M ANTON Administration ORDERS Category Date Time Status US retroperitoneal comp Stat Exams 08/16/17 09:21 Taken Beta HCG, Quant [HCG,Quantitative] Stat Lab 02/19/18 11:20 Received Complete Blood Count Auto Diff Stat Lab 08/16/17 11:20 Received Comprehensive Metabolic Panel Stat Lab 08/16/17 11:20 Received - US Data US Images: Abdomen ED US Reviewed: Yes: I have reviewed the patient's US results, I discussed the US results w/the radiologist, I have viewed radiologist's interpretation Findings Narrative: dilated ureter on right but no stone seen - Ganga Inquiry Pt receiving controlled substance: Yes Ganga was queried for this patient: No Reason not queried -: Emergent pt cond-no time Risks and benefits of using a controlled substance: were discussed with pt by me General Adult HPI - General Chief complaint: PAIN Stated complaint: right side pain,11 weeks Time Seen by Provider: 08/16/17 09:17 Mode of Arrival: Family Vehicle Limitations: No Limitations Description of Symptoms (Recalled from ER Triage Doc. by RN): right side abd pain, pt states feels like its a kidney stone - History of Present Illness HPI narrative: Pt reports she is 11 we
[2017-08-16 09:43] LABS: Microscopic, Urine URINE MICROSCOPIC (MICROSCOPIC)
[2017-08-16 09:45] LABS: Appearance,Urine CLOUDY (Clear); Bilirubin,Urine Negative (Negative); Blood, Urine 3+ (Negative); Color,Urine RED (Yellow); Glucose,Urine (UA) Negative (Negative); Ketones,Urine Negative (Negative); Leukocyte Esterase,Urine Negative (Negative); Nitrate,Urine Negative (Negative); Protein,Urine TRACE (Negative); Specific Gravity, Urine <= 1.005 (1.005-1.030); Urobilinogen,Urine 0.2 EU/dl (0.2)
[2017-08-16 10:04] LABS: RBC,Urine TNTC #/hpf (0-3)
--- NOTE | 2017-08-16 11:21 | PC.NURSE ---
dr Tim ponce at [facility]
[2017-08-16 11:26] LABS: Basophils % 0.2 % (0.1-2.0); Eosinophils # 0.2 K/mm3 (0.0-0.4); Eosinophils % 2.3 % (0.1-12.0); Hematocrit 37.2 % (37.0-47.0); Lymphocytes # 1.7 K/mm3 (0.7-4.5); Lymphocytes % 19.4 K/mm3 (10-50); Mean Corpuscular HGB Conc 32.3 g/dL (31.8-35.4); Mean Corpuscular Hemoglobin 28.5 pg (27.0-31.2); Mean Corpuscular Volume 88.3 fl (81-99); Mean Platelet Volume 7.8 fl (7.4-10.4); Monocytes # 0.4 K/mm3 (0.1-1.0); Monocytes % 4.4 % (1.7-9.3); Neutrophils # 6.3 K/mm3 (1.8-7.8); Neutrophils % 73.8 % (37.0-80.0); Platelet Count 296 K/mm3 (142-424); Red Blood Count 4.21 M/mm3 (4.20-5.40); Red Cell Distribution Width 16.5 % (11.5-17.5); White Blood Count 8.5 K/mm3 (4.8-10.8)
[2017-08-16 11:53] LABS: Blood Urea Nitrogen 10 mg/dL (7-18); Calcium 8.8 mg/dL (8.5-10.1); Carbon Dioxide 26 mmol/L (21.0-32.0); Chloride 104 mmol/L (98-107); Creatinine Clearance Estimated 149 mL/min (0-300); Creatinine,Serum 0.67 mg/dL (0.55-1.02); Estimated Glomerular Filt Rate 106 ml/min (>60); GFR (African American) 128 ML/MIN (>60); Glucose 95 mg/dL (74-106); Sodium 137 mmol/L (136-145)
[2017-08-16 11:54] LABS: Alanine Aminotransferase 24 U/L (12-78); Albumin Level 3.8 gm/dL (3.4-5.0); Albumin/Globulin Ratio 0.9 (1.1-1.8); Alkaline Phosphatase 61 U/L (46-116); Aspartate Amino Transferase 11 U/L (15-37); Bilirubin,Total 0.2 mg/dL (0.2-1.0); Globulin 4.1 gm/dl (1.3-3.2); Total Protein,Serum 7.9 gm/dL (6.4-8.2)
[2017-08-16 12:37] VITALS: BP 123/70; PULSE 65; RESP 18; TEMP 36.8; O2SAT 98
== END 2017-08-16 12:37 | disposition critical access hospital (66) ==
PROVIDERS: Emergency Provider General Practice; Family Provider Internal Medicine Adolescent Medicine; PCP Internal Medicine Adolescent Medicine
DX: N13.2 Hydronephrosis with renal and ureteral calculous obstruction (principal); Z87.442 Personal history of urinary calculi; Z3A.11 11 weeks gestation of pregnancy; Z88.6 Allergy status to analgesic agent; Z88.0 Allergy status to penicillin; Z79.899 Other long term (current) drug therapy
CPT/HCPCS: 36415; 76770; 80053; 81001; 84702; 85025; 96365; 96374; 96375; 99284; J0595

== ENCOUNTER 2017-09-30 19:46 | Observation (INO) ==
--- NOTE | 2017-09-30 20:15 | Emergency Department Note ---
ED Disposition Clinical Impression: Intractable pain, Renal colic on right side Disposition: Admitted As Inpatient Condition on Discharge: Good Time of Disposition: 00:15 - Critical Care Critical Care Time: No Attestation: On 09/30/17, the high probability of a clinically significant, sudden or life threatening deterioration of the following system(s) required my full and direct attention, intervention and personal management. The time I documented below is in addition to time spent performing reported procedures but includes the following listed in this critical care notation. Medical Decision Making - Medical Records Medical records reviewed: Yes: I reviewed the patient's medical records. - [place] Inquiry Pt receiving controlled substance: No Vital Signs: 09/30/17 19:59 10/01/17 00:21 Temperature 97.9 F 98.5 F Temperature Source Oral Oral Pulse Rate 78 Pulse Rate [Right Radial] 107 H Respiratory Rate 20 20 Blood Pressure 111/70 Blood Pressure [Right Arm] 130/105 Blood Pressure Mean [Right Arm] 113 Blood Pressure Source [Right Arm] Automatic Cuff Blood Pressure Position [Right Arm] Supine 02 Sat by Pulse Oximetry 96 Oxygen Delivery Method Room Air - Lab Data Lab Results 09/30/17 20:00: Urine Color Yellow, Urine Appearance Sl cloudy, Urine pH 5.5, Ur Specific [place] 1.015, Urine Protein Trace, Urine Glucose (UA) Negative, Urine Ketones 1+, Urine Blood 3+, Urine Nitrate Negative, Urine Bilirubin Negative, Urine Urobilinogen 0.2, Ur Leukocyte Esterase Trace, Urine RBC 3-5, Urine WBC 3-5, Ur Squamous Epith Cells 20-50, Urine Bacteria 1+, Hyaline Casts Occasional 09/30/17 20:00: WBC 9.9, RBC 4.17 L, Hgb 12.4, Hct 38.1, MCV 91.5, MCH 29.6, MCHC 32.4, RDW 16.4, Plt Count 269, MPV 8.5, Neut % (Auto) 63.7, Lymph % (Auto) 30.1, [place] % (Auto) 4.3, Eos % (Auto) 1.6, Baso % (Auto) 0.3, Neut # (Auto) 6.3 , Lymph # (Auto) 3.0, [place] # (Auto) 0.4, Eos # (Auto) 0.2, Baso # (Auto) 0.0 09/30/17 20:00: Sodium 137, Potassium 3.6, Chloride 102, Carbon Dioxide 23, Anion Gap 15.6 H, BUN 9, Creatinine 0.74, Estimated Creat Clear 155, Estimated GFR 94, Est GFR ( Amer) 114, Glucose 77, Calcium 8.8, Total Bilirubin 0.2 , AST 20, ALT 21, Alkaline Phosphatase 59, Total Protein 7.5, Albumin 3.5, Globulin 4.0 H, Albumin/Globulin Ratio 0.9 L, Amylase 66 09/30/17 20:00: Urine Opiates Screen Negative, Ur Barbituates Screen Negative, Ur Phencyclidine Scrn Negative, Ur Amphetamines Screen Negative, U Methamphetamines Scrn Negative, U Benzodiazepines Scrn Positive H, Urine Cocaine Screen Negative, U Marijuana (THC) Screen Negative 09/30/17 20:00: Lipase 87 Result diagrams: 09/30/17 20:00 09/30/17 20:00 Orders (Tests/Meds): ED MEDICATIONS Discontinued Medications Generic Name Dose Route Start Last Admin Trade Name Mikeq PRN Reason Stop Dose Admin Butorphanol Tartrate 1 mg 09/30/17 20:34 09/30/17 20:45 Stadol 1mg/1ml Vial IV 09/30/17 20:35 1 mg ONCE ONE Administration Butorphanol Tartrate 1 mg 09/30/17 22:37 09/30/17 22:46 Stadol 1mg/1ml Vial IV 09/30/17 22:38 1 mg ONCE ONE Administration Fentanyl Citrate 50 mcg 09/30/17 20:21 10/01/17 00:23 Fentanyl 100mcg/2ml Vial IV 09/30/17 20:22 Not Given ONCE ONE Sodium Chloride 1,000 mls @ 999 mls/hr 09/30/17 20:15 09/30/17 20:45 Sod Chlor 0.9% 1000ml Bag IV 09/30/17 21:15 999 mls/hr .Q1H1M ANTON Administration Sodium Chloride 1,000 mls @ 999 mls/hr 09/30/17 22:45 09/30/17 22:47 Sod Chlor 0.9% 1000ml Bag IV 09/30/17 23:45 999 mls/hr .Q1H1M ANTON Administration Lorazepam 1 mg 09/30/17 22:37 09/30/17 22:55 Ativan 2mg/Ml Vial IV 09/30/17 22:38 1 mg ONCE ONE Administration Promethazine HCl 12.5 mg 09/30/17 20:22 09/30/17 20:45 Phenergan 25mg/Ml 1ml Vial IV 09/30/17 20:23 12.5 mg ONCE ONE Administration Promethazine HCl 12.5 mg 09/30/17 22:51 09/30/17 22:55 Phenergan 25mg/Ml 1ml Vial IV 09/30/17 22:52 12.5 mg ONCE ONE Administration Sodium Chloride 25 ml 09/30/17 20:22 Sod Chlor 0.9% 25ml Bag IV 09/30/17 20:23 ONCE ONE Sodium Chloride 25 ml 09/30/17 22:51 Sod Chlor 0.9% 25ml Bag IV 09/30/17 22:52 ONCE ONE - Physician Consults Physician Consulted: Dr Arnold Time: 23:30 Reason -: Admission, Pt condition Comment/Response: Advised of patient's presentation and findings, agreeable with hospitalization, requested to continue fluids, IV pain meds, requested urology consult in a.m. - Reevaluation(s) Time: 23:15 Reevaluation #1: Upon evaluation patient appears in distress, tearful, in pain, making repeated requests for additional pain medications. But this time the patient has had Stadol, Ativan, Phenergan, with no complete relief of her symptoms. Patient refusing to be transferred to her high lead yarder physician in [place], despite multiple conversations with her on this subject. Patient stated that she needs to stay in town because she has another small child, at home. Female Urogenital HPI - General Chief complaint: Urogenital-Female Stated complaint: 20wk preg 42383 Kidney stones Time Seen by Provider: 09/30/17 20:00 Mode of Arrival: Ambulatory Source of Information: Patient Limitations: No Limitations Description of Symptoms (Recalled from ER Triage Doc. by RN): Pt. reports sharp pain in her right side, bloody urine, and painful urination - History of Present Illness HPI Narrative: Patient is a 26-year-old female, 21 weeks , presenting to the emergency room with right flank pain associated with nausea and vomiting, for the past 6 hours. Patient has a history of multiple kidney stones in the past. She was a frequent patient in this emergency room while with her other child. Patient denies any abdominal cramping, denies any vaginal bleeding , vaginal discharge, contractions. MD Complaint: other (right flank pain) Onset (ago): hour(s) (4) Location: other (right flank pain ) Radiation: R flank Severity: moderate Severity scale (1-10): 8 Quality: burning Duration: intermittent Relieving factors: none Exacerbating factors: none Urinary Symptoms: frequency Sexual activity: yes : yes - Related Data Home Medications Medication Instructions Recorded Confirmed Escitalopram Oxalate 20 mg PO DAILY 07/16/17 09/30/17 Gabapentin [Neurontin 600mg 300 mg PO 10,14,18 07/16/17 09/30/17 tablet] Gabapentin [Neurontin 600mg 600 mg PO HS 07/16/17 09/30/17 tablet] Zolpidem Tartrate [Ambien 10mg 10 mg PO HS 07/16/17 09/30/17 tablet] buPROPion HCl [Bupropion Xl] 300 mg PO DAILY 07/16/17 09/30/17 clonazePAM [Klonopin 1mg tablet] 1 mg PO TID 07/16/17 09/30/17 Oxycodone HCl/Acetaminophen 1 tab PO Q4HP PRN 07/17/17 09/30/17 [Percocet 5/325mg tablet] Promethazine HCl [Phenergan 12.5mg 12.5 mg RC Q4HP PRN 07/17/17 09/30/17 Supp] Previous Rx's Medication Instructions Recorded tramadol 50 mg tablet 50 mg PO Q6H PRN #20 tab 07/26/17 Allergies Allergy/AdvReac Type Severity Reaction Status Date / Time codeine [CODEINE] Allergy Severe S-SWELLS-OR Verified 09/30/17 20:09 AL/THROAT lamotrigine [From LAMICTAL] Allergy Unknown Verified 09/30/17 20:09 morphine [MORPHINE] Allergy Unknown Verified 09/30/17 20:09 Penicillins [PENICILLINS] Allergy Unknown S-DIFF. Verified 09/30/17 20:09 [facility] History I have reviewed the patient's past medical history: Yes Medical History: Denies:: Cancer, Diabetes Mellitus Type 1, Diabetes Mellitus Type 2, Internal Pacemaker, MRSA Laterality Cases: Bilateral: Tonsillectomy Other Surgeries: No: Pacemaker Amputation: No Fractures: No - Social History Smoking Status: Never smoker Alcohol Intake: never Occupational Status: employed Housing: apartment Household Members: spouse, children - Psychiatric History Expresses thoughts of harming self/others: None Suicide Plan Description: No Plan ROS Obtained: Yes All systems reviewed & no additional complaints, Yes Systems reviewed as appropriate & no additional complaints - Gastrointestinal Gastrointestingal: Reports: system reviewed and no additional complaints, except as docu, as per HPI, abdominal pain (right lower quadrant), nausea, vomiting - Musculoskeletal Musculoskeletal: Reports system reviewed and no additional complaints, except as docu, Reports as per HPI, Reports back pain (right) Physical Exam - General General appearance: alert, in distress (severe) - Head Head exam: atraumatic, normocephalic, normal inspection - Neck Neck exam: Present: normal inspection, full ROM, trachea midline. Absent: meningismus, lymphadenopathy - Chest Chest inspection: Present: normal inspection, symmetric chest wall rise. Absent : tenderness - Respiratory Respiratory exam: Present: normal lung sounds bilaterally. Absent: respiratory distress - Cardiovascular Cardiovascular exam: Present: regular rate, normal rhythm. Absent: JVD - Abdominal Exam Abdominal exam: Present: soft, tenderness (RLQ), normal bowel sounds. Absent: distention, guarding - Extremities Exam Extremities exam: Present: normal inspection, full ROM, normal capillary refill. Absent: calf tenderness - Back Exam Back exam: Present: normal inspection, full ROM, CVA tenderness (R). Absent: tenderness - Neurological Exam Neurological exam: Present: alert, oriented X3 - Psychiatric Psychiatric exam: Present: normal affect, normal mood - Skin Skin exam: Present: warm, dry, intact, normal color - Lymphatic Lymphatic Findings: no adenopathy
[2017-09-30 20:34] LABS: Appearance,Urine SL CLOUDY (Clear); Bilirubin,Urine Negative (Negative); Blood, Urine 3+ (Negative); Color,Urine YELLOW (Yellow); Glucose,Urine (UA) Negative (Negative); Ketones,Urine 1+ (Negative); Leukocyte Esterase,Urine TRACE (Negative); Microscopic, Urine URINE MICROSCOPIC (MICROSCOPIC); PH,Urine 5.5 (5.0-8.5); Protein,Urine TRACE (Negative); Specific Gravity, Urine 1.015 (1.005-1.030); Urobilinogen,Urine 0.2 EU/dl (0.2)
[2017-09-30 20:37] LABS: Basophils % 0.3 % (0.1-2.0); Eosinophils # 0.2 K/mm3 (0.0-0.4); Eosinophils % 1.6 % (0.1-12.0); Hematocrit 38.1 % (37.0-47.0); Hemoglobin 12.4 g/dL (12.2-16.2); Lymphocytes % 30.1 K/mm3 (10-50); Mean Corpuscular HGB Conc 32.4 g/dL (31.8-35.4); Mean Corpuscular Hemoglobin 29.6 pg (27.0-31.2); Mean Corpuscular Volume 91.5 fl (81-99); Mean Platelet Volume 8.5 fl (7.4-10.4); Monocytes # 0.4 K/mm3 (0.1-1.0); Monocytes % 4.3 % (1.7-9.3); Neutrophils # 6.3 K/mm3 (1.8-7.8); Neutrophils % 63.7 % (37.0-80.0); Platelet Count 269 K/mm3 (142-424); Red Blood Count 4.17 M/mm3 (4.20-5.40); Red Cell Distribution Width 16.4 % (11.5-17.5); White Blood Count 9.9 K/mm3 (4.8-10.8)
[2017-09-30 20:48] LABS: Amphetamine/Metha Screen,Urine Negative ng/mL (<1000); Barbiturates Screen,Urine Negative ng/mL (<200); Benzodiazepines Screen,Urine Positive ng/mL (200); Cannabinoid Screen,Urine Negative ng/mL (<50); Cocaine Screen,Urine Negative ng/g (<300); Methadone Screen,Urine Negative ng/mL (<300); Opiate Screen,Urine Negative ng/mL (<300); Phencyclidine Screen,Urine Negative ng/mL (<25)
[2017-09-30 20:53] LABS: Bacteria,Urine 1+ /lpf; Squamous Epithelial Cell,Urine 20-50 #/hpf (0-5)
[2017-09-30 20:54] LABS: Hyaline Casts,Urine Occasional #/lpf (0)
[2017-09-30 20:56] LABS: Albumin Level 3.5 gm/dL (3.4-5.0); Albumin/Globulin Ratio 0.9 (1.1-1.8); Anion Gap 15.6 mEq/L (5-15); Bilirubin,Total 0.2 mg/dL (0.2-1.0); Calcium 8.8 mg/dL (8.5-10.1); Potassium 3.6 mmoL/L (3.5-5.1); Total Protein,Serum 7.5 gm/dL (6.4-8.2)
--- NOTE | 2017-11-19 13:06 | Discharge Summary ---
General - General Admission date:: 10/01/17 Hospital Course Hospital Course: This 26-year-old patient arrived in the labor room with complaints of contractions. Before I could see her she refused treatment and signed out AGAINST MEDICAL ADVICE. I had no other information on this patient. Objective Vital signs: Temp Pulse Resp BP Pulse Ox 98.3 F 63 17 120/55 100 10/01/17 00:32 10/01/17 00:32 10/01/17 00:32 10/01/17 00:32 10/01/17 00:32 Discharge Plan - Patient Discharge Instructions - Follow up Plan Disposition: Left Against Medical Advice Home Medications: Home Medications Medication Instructions Recorded Confirmed Type Escitalopram Oxalate 20 mg PO DAILY 07/16/17 09/30/17 History Gabapentin [Neurontin 600mg 300 mg PO ,,07/16/17 09/30/17 History tablet] Gabapentin [Neurontin 600mg 600 mg PO HS 07/16/17 09/30/17 History tablet] Zolpidem Tartrate [Ambien 10mg 10 mg PO HS 07/16/17 09/30/17 History tablet] buPROPion HCl [Bupropion Xl] 300 mg PO DAILY 07/16/17 09/30/17 History clonazePAM [Klonopin 1mg tablet] 1 mg PO TID 07/16/17 09/30/17 History Oxycodone HCl/Acetaminophen 1 tab PO Q4HP PRN 07/17/17 09/30/17 History [Percocet 5/325mg tablet] Promethazine HCl [Phenergan 12.5mg 12.5 mg RC Q4HP PRN 07/17/17 09/30/17 History Supp] Prescriptions/Medication Reconciliation: No Action tramadol 50 mg tablet 50 mg PO Q6H PRN #20 tab PRN Reason: pain Escitalopram Oxalate 20 mg PO DAILY buPROPion HCl [Bupropion Xl] 300 mg PO DAILY Gabapentin [Neurontin 600mg tablet] 600 mg PO HS clonazePAM [Klonopin 1mg tablet] 1 mg PO TID Zolpidem Tartrate [Ambien 10mg tablet] 10 mg PO HS Oxycodone HCl/Acetaminophen [Percocet 5/325mg tablet] 1 tab PO Q4HP PRN PRN Reason: Moderate To Severe Pain Gabapentin [Neurontin 600mg tablet] 300 mg PO 10,14,18 Promethazine HCl [Phenergan 12.5mg Supp] 12.5 mg RC Q4HP PRN PRN Reason: Nausea
== END 2017-10-01 04:26 | disposition left against medical advice (07) ==
LOC: ER 19:46 → OB 19:46
PROVIDERS: ADMIT Obstetrics & Gynecology; ATTEND Nurse Practitioner Obstetrics & Gynecology

== ENCOUNTER 2017-10-24 14:47 | Outpatient (CLI) | payer BC, SELFPAY ==
[2017-10-24 14:54] VITALS: BMI 31.5
[2017-10-24 15:19] VITALS: BP 127/71; PULSE 98; RESP 18; TEMP 37; O2SAT 98; BMI 31.5
[2017-10-24 15:23] LABS: Microscopic, Urine URINE MICROSCOPIC (MICROSCOPIC)
[2017-10-24 15:24] LABS: Appearance,Urine SL CLOUDY (Clear); Bilirubin,Urine Negative (Negative); Blood, Urine 3+ (Negative); Color,Urine ORANGE (Yellow); Glucose,Urine (UA) Negative (Negative); Ketones,Urine Negative (Negative); Leukocyte Esterase,Urine 1+ (Negative); Nitrate,Urine Negative (Negative); PH,Urine 6.5 (5.0-8.5); Protein,Urine Negative (Negative); Specific Gravity, Urine <= 1.005 (1.005-1.030); Urobilinogen,Urine 0.2 EU/dl (0.2)
[2017-10-24 15:59] LABS: Bacteria,Urine 2+ /lpf; RBC,Urine 20-50 #/hpf (0-3)
[2017-10-24 16:02] LABS: Amphetamine/Metha Screen,Urine Negative ng/mL (<1000); Barbiturates Screen,Urine Negative ng/mL (<200); Benzodiazepines Screen,Urine Negative ng/mL (200); Cannabinoid Screen,Urine Negative ng/mL (<50); Cocaine Screen,Urine Negative ng/g (<300); Methadone Screen,Urine Negative ng/mL (<300); Opiate Screen,Urine Negative ng/mL (<300); Phencyclidine Screen,Urine Negative ng/mL (<25)
--- NOTE | 2017-10-24 18:08 | HMH.ACPN ---
Internal Medicine - PN: Subj *Date: 10/24/17 *Time: 18:08 Interval history: 26 year old @ 22 07/04 weeks presented to L&D triage with complaint of acute right sided flank pain and concerns that the baby was uneasy. She is established patient with care at [facility] (Dr. Mohamud) and when she spoke to covering physician Dr. Rust today, she was too hysterical for him to be able to understand her and/or appropriately triage her, so he advised her to be evaluated at the closest hospital. She is also a former patient of Dr. Singh with prior but was dismissed from the practice, although she continues to frequent both the ED and OB triage at [facility]. Today's complaints include an acute onset of right flank pain, beginning approximately 2 hours ago. Pain is constant with acute exacerbations. She reports nausea and vomiting with an inability to keep any po intake down in past 24 hours, although urine is negative for ketones. She denies any fever, dysuria or urinary retention. UA did show 3+ blood , 1+ LE and 3-5 WBC, but also had 10-20 squamous epithelial cells and was not a clean catch. She reports a history of chronic renal stones, with previous urology treatment and management at [facility], but no current urology follow up. Last admission for renal stone that she reports was at 08/03-08/04/17; she was treated with IV fluids, phenergan and IV dilaudid and discharged the follow day after admission. She was given Rx for phenergan and percocet at time of discharge. Review of med history includes numerous Rx for percocet, neurontin, klonopin & phenergan; she also has documented Rx for Zoloft, Wellbutrin and Lexapro. She states that she is not currently taking any of these meds. A review of office notes sent by today shows an additional Rx for Percocet #20 given 08/19/17. The patient was intermittently hysterical during her evaluation in triage, with periods of extreme sobbing and dramatic flailing around the bed. Her behavior was calm and with no evident distress during the time that physician was in the room obtaining a history from her, and her exam did not show any acute findings. Vital signs were within normal limits and no contractions were observed on tocometer. FHT appropriate 140's. Her evaluation was discussed with front office manager physician Dr. Rust, who concurred with the recommendation to offer her an IV fluid bolus, Zofran and Ofirmev. The patient, however, abruptly requested discharge home to hydrate orally when she was informed that her findings did not warrant administration of narcotics today. She has a follow up appointment with Dr. Mohamud this week and was instructed to keep this appointment. She was given instructions for precautions/emergent findings to return to [facility] or , and/or page the physician front office manager. Exam Vital signs and Labs for Last 24 Hours: Temp Pulse Resp BP Pulse Ox 98.6 F 98 H 18 127/71 98 10/24/17 15:19 10/24/17 15:19 10/24/17 15:19 10/24/17 15:19 10/24/17 15:19 Laboratory Results - last 24 hr 10/24/17 14:57: Urine Color [place], Urine Appearance Sl cloudy, Urine pH 6.5, Ur Specific [place] <= 1.005, Urine Protein Negative, Urine Glucose (UA) Negative, Urine Ketones Negative, Urine Blood 3+, Urine Nitrate Negative, Urine Bilirubin Negative, Urine Urobilinogen 0.2, Ur Leukocyte Esterase 1+ A, Urine RBC 20-50, Urine WBC 3-5, Ur Squamous Epith Cells 10-20, Urine Bacteria 2+ 10/24/17 14:58: Urine Opiates Screen Negative, Ur Barbituates Screen Negative, Ur Phencyclidine Scrn Negative, Ur Amphetamines Screen Negative, U Methamphetamines Scrn Negative, U Benzodiazepines Scrn Negative, Urine Cocaine Screen Negative, U Marijuana (THC) Screen Negative I & O for Last 24 hours: Intake & Output 10/22/17 10/23/17 10/24/17 10/25/17 11:59 11:59 11:59 11:59 Weight 178 lb - Constitutional agitated (No acute findings or medical distress, but extreme hystrionic b
--- NOTE | 2017-10-24 18:25 | P.PN_ITS ---
Internal Medicine - PN: Subj *Date: 10/24/17 *Time: 18:08 Interval history: 26 year old @ 22 07/04 weeks presented to L&D triage with complaint of acute right sided flank pain and concerns that the baby was uneasy. She is established patient with care at [facility] (Dr. Mohamud) and when she spoke to covering physician Dr. Rust today, she was too hysterical for him to be able to understand her and/or appropriately triage her , so he advised her to be evaluated at the closest hospital. She is also a former patient of Dr. Singh with prior but was dismissed from the practice, although she continues to frequent both the ED and OB triage at [facility]. Today's complaints include an acute onset of right flank pain, beginning approximately 2 hours ago. Pain is constant with acute exacerbations. She reports nausea and vomiting with an inability to keep any po intake down in past 24 hours, although urine is negative for ketones. She denies any fever, dysuria or urinary retention. UA did show 3+ blood , 1+ LE and 3-5 WBC, but also had 10-20 squamous epithelial cells and was not a clean catch. She reports a history of chronic renal stones, with previous urology treatment and management at [facility], but no current urology follow up. Last admission for renal stone that she reports was at 08/03-08/04/17; she was treated with IV fluids, phenergan and IV dilaudid and discharged the follow day after admission. She was given Rx for phenergan and percocet at time of discharge. Review of med history includes numerous Rx for percocet, neurontin, klonopin & phenergan; she also has documented Rx for Zoloft, Wellbutrin and Lexapro. She states that she is not currently taking any of these meds. A review of office notes sent by today shows an additional Rx for Percocet #20 given 08/19/17. The patient was intermittently hysterical during her evaluation in triage, with periods of extreme sobbing and dramatic flailing around the bed. Her behavior was calm and with no evident distress during the time that physician was in the room obtaining a history from her, and her exam did not show any acute findings. Vital signs were within normal limits and no contractions were observed on tocometer. FHT appropriate 140's. Her evaluation was discussed with electronic wirer physician Dr. Rust, who concurred with the recommendation to offer her an IV fluid bolus, Zofran and Ofirmev. The patient, however, abruptly requested discharge home to hydrate orally when she was informed that her findings did not warrant administration of narcotics today. She has a follow up appointment with Dr. Mohamud this week and was instructed to keep this appointment. She was given instructions for precautions/emergent findings to return to [facility] or , and/or page the physician electronic wirer. Exam Vital signs and Labs for Last 24 Hours: Temp Pulse Resp BP Pulse Ox 98.6 F 98 H 18 127/71 98 10/24/17 15:19 10/24/17 15:19 10/24/17 15:19 10/24/17 15:19 10/24/17 15:19 Laboratory Results - last 24 hr 10/24/17 14:57: Urine Color [place], Urine Appearance Sl cloudy, Urine pH 6.5, Ur Specific [place] <= 1.005, Urine Protein Negative, Urine Glucose (UA) Negative, Urine Ketones Negative, Urine Blood 3+, Urine Nitrate Negative, Urine Bilirubin Negative, Urine Urobilinogen 0.2, Ur Leukocyte Esterase 1+ A, Urine RBC 20-50, Urine WBC 3-5, Ur Squamous Epith Cells 10-20, Urine Bacteria 2+ 10/24/17 14:58: Urine Opiates Screen Negative, Ur Barbituates Screen Negative, Ur Phencyclidine Scrn Negative, Ur Amphetamines Screen Negative, U Methamphetamines Scrn Negative, U Benzodiazepines Scrn Negative, Urine Cocaine Screen Ne
== END 2017-10-24 18:05 | disposition home or self-care (01) ==
LOC: OBOUT 14:48 → OB 14:49
PROVIDERS: PCP Internal Medicine Adolescent Medicine; Visit Provider Obstetrics & Gynecology
DX: O26.892 Other specified pregnancy related conditions, second trimester (principal); Z3A.22 22 weeks gestation of pregnancy; M54.5 Low back pain
CPT/HCPCS: 80305; 81001; 87086; 87088; 87186

== ENCOUNTER 2017-12-23 18:27 | Outpatient (CLI) | payer MEDICAID, SELFPAY ==
[2017-12-23 18:40] VITALS: BMI 28.3
[2017-12-23 18:47] LABS: Microscopic, Urine URINE MICROSCOPIC (MICROSCOPIC)
[2017-12-23 18:50] VITALS: BP 127/90; PULSE 119; RESP 22; TEMP 36.7; BMI 28.6
[2017-12-23 18:50] LABS: Bilirubin,Urine Negative (Negative); Blood, Urine 3+ (Negative); Glucose,Urine (UA) Negative (Negative); Ketones,Urine Negative (Negative); Leukocyte Esterase,Urine TRACE (Negative); Nitrate,Urine Negative (Negative); PH,Urine 6.5 (5.0-8.5); Protein,Urine TRACE (Negative); Urobilinogen,Urine 0.2 EU/dl (0.2)
[2017-12-23 18:54] LABS: Appearance,Urine Cloudy (Clear); Color,Urine Red (Yellow)
[2017-12-23 19:38] LABS: Bacteria,Urine 1+ /lpf; Squamous Epithelial Cell,Urine Occasional #/hpf (0-5)
[2017-12-23 23:14] LABS: Amphetamine/Metha Screen,Urine Negative ng/mL (<1000); Barbiturates Screen,Urine Negative ng/mL (<200); Benzodiazepines Screen,Urine Negative ng/mL (<200); Cannabinoid Screen,Urine Negative ng/mL (<50); Cocaine Screen,Urine Negative ng/mL (<300); Methadone Screen,Urine Negative ng/mL (<300); Opiate Screen,Urine Negative ng/mL (<300); Phencyclidine Screen,Urine Negative ng/mL (<25)
== END 2017-12-23 19:15 | disposition home or self-care (01) ==
LOC: OBOUT 18:28 → OB 18:29
PROVIDERS: Visit Provider Obstetrics & Gynecology
DX: O26.893 Other specified pregnancy related conditions, third trimester (principal); Z3A.30 30 weeks gestation of pregnancy; R10.2 Pelvic and perineal pain; M54.5 Low back pain; Z87.442 Personal history of urinary calculi
CPT/HCPCS: 59025; 80305; 81001

== ENCOUNTER 2018-02-03 23:25 | Outpatient (CLI) | payer MEDICAID, SELFPAY ==
[2018-02-03 23:34] VITALS: BMI 36.6
[2018-02-04 00:04] LABS: Microscopic, Urine URINE MICROSCOPIC (MICROSCOPIC)
[2018-02-04 00:15] VITALS: BP 137/103; PULSE 113; RESP 18; TEMP 37.2; O2SAT 100; BMI 36.6
[2018-02-04 00:20] LABS: Amphetamine/Metha Screen,Urine Negative ng/mL (<1000); Barbiturates Screen,Urine Negative ng/mL (<200); Benzodiazepines Screen,Urine Negative ng/mL (<200); Cannabinoid Screen,Urine Negative ng/mL (<50); Cocaine Screen,Urine Negative ng/mL (<300); Methadone Screen,Urine Negative ng/mL (<300); Opiate Screen,Urine Negative ng/mL (<300); Phencyclidine Screen,Urine Negative ng/mL (<25)
[2018-02-04 00:22] LABS: Bilirubin,Urine Negative (Negative); Blood, Urine 2+ (Negative); Color,Urine YELLOW (Yellow); Glucose,Urine (UA) Negative (Negative); Ketones,Urine Negative (Negative); Leukocyte Esterase,Urine 3+ (Negative); Nitrate,Urine Negative (Negative); Protein,Urine TRACE (Negative); Urobilinogen,Urine 0.2 EU/dl (0.2)
[2018-02-04 00:23] LABS: Appearance,Urine Cloudy (Clear)
[2018-02-04 00:30] LABS: Bacteria,Urine 1+ /lpf; Mucus,Urine 1+ /lpf
== END 2018-02-04 01:00 | disposition home or self-care (01) ==
LOC: OBOUT 23:27 → OB 23:28
PROVIDERS: Visit Provider Nurse Practitioner Obstetrics & Gynecology
DX: O47.03 False labor before 37 completed weeks of gestation, third trimester (principal); Z3A.35 35 weeks gestation of pregnancy
CPT/HCPCS: 59025; 80305; 81001; 87086; 87088; 87186

== ENCOUNTER → 2018-07-13 15:11 | Outpatient (CLI) | payer MEDICAID, SELFPAY ==
--- NOTE | 2018-07-13 15:17 | XR_ITS ---
XR knee RT 3V HISTORY: Pain, recurrent dislocation ITS.REASON: DISLOCATION OF RT PATELLA ORDERING PHYSICIAN: Guille Morrell MD PATIENT AGE: 27 years COMPARISON: None FINDINGS: No fracture or dislocation. No lytic or blastic change. Normal mineralization. No significant arthritic changes evident. No other significant findings IMPRESSION: Negative Knee
== END ==
PROVIDERS: PCP Internal Medicine Adolescent Medicine; Visit Provider Internal Medicine Adolescent Medicine
DX: S83.004A Unspecified dislocation of right patella, initial encounter (principal)
CPT/HCPCS: 73562

== ENCOUNTER → 2018-07-27 09:51 | Outpatient (CLI) | payer MEDICAID, SELFPAY ==
--- NOTE | 2018-07-27 09:56 | XR_ITS ---
XR knee LT 4V HISTORY: Left knee pain ITS.REASON: weight bearing views ORDERING PHYSICIAN: Kaila Fernandez MD PATIENT AGE: 27 years COMPARISON: 00 100 100 and FINDINGS: Weightbearing views are performed. There is normal alignment. No fracture or dislocation. There has been prior tibial tuberosity transfer with 2 screws within the proximal aspect of the tibia with cortical thickening at this region and a cortical defect just superior to the screws. The joint spaces are well-preserved. There is a well circumscribed calcific density along the medial femoral condyle distally and could represent sequela from prior ligamentous avulsion injury. IMPRESSION: 1. No acute finding. 2. Postsurgical changes with possible old avulsion fracture of the medial femoral condyle which may be seen with MCL injuries
--- NOTE | 2018-07-27 09:56 | XR_ITS ---
XR knee RT 4V HISTORY: Pain ITS.REASON: weight bearing views ORDERING PHYSICIAN: Kaila Fernandez MD PATIENT AGE: 27 years COMPARISON: None FINDINGS: Weight bearing views are performed No fracture or dislocation. No lytic or blastic change. Normal mineralization. No significant arthritic changes evident. No other significant findings IMPRESSION: Negative Knee
== END ==
PROVIDERS: PCP Internal Medicine Adolescent Medicine; Visit Provider Orthopaedic Surgery
DX: S83.001A Unspecified subluxation of right patella, initial encounter (principal); S83.002A Unspecified subluxation of left patella, initial encounter; M25.561 Pain in right knee; M25.562 Pain in left knee
CPT/HCPCS: 73564

== ENCOUNTER → 2018-08-01 09:40 | Outpatient (CLI) | payer MEDICAID, SELFPAY ==
--- NOTE | 2018-08-01 10:03 | MR_ITS ---
MR knee RT wo con HISTORY: Medial right knee pain with popping in and out of place ITS.REASON: Rt knee pain ORDERING PHYSICIAN: Kaila Fernandez MD PATIENT AGE: 27 years Comparison: 07/27/2018 TECHNIQUE: Standard multiplanar multiecho sequences are performed without contrast. FINDINGS: The cruciate ligaments are intact. The collateral ligaments, patellar tendon, and quadriceps tendon are unremarkable. No evidence of meniscal tear. There is a small knee joint effusion. The patellar cartilage is well preserved. There is a small knee joint effusion. There is minimal lateral patellar subluxation. The medial patellofemoral ligament is somewhat ill-defined and could be due to prior injury. There is some increased T2 signal involving the medial aspect of the patella at the patellofemoral ligament insertion region.. The trochlear groove is somewhat shallow. IMPRESSION: 1. No evidence of internal derangement 2. Mild lateral patellar subluxation with shallow trochlear groove and sprain versus partial tear of the medial patellofemoral ligament raising the suspicion of patellar instability. 3. Small knee joint effusion
== END ==
PROVIDERS: PCP Internal Medicine Adolescent Medicine; Visit Provider Orthopaedic Surgery
DX: S83.006A Unspecified dislocation of unspecified patella, initial encounter (principal)
CPT/HCPCS: 73721